=== PATIENT | female | born 1965 | race Caucasian/White ===

== ENCOUNTER 2021-01-23 18:10 | Observation (INO) | payer OTHER, SELFPAY ==
[2021-01-23] VITALS (19 sets, daily range): BP systolic 118–153; BP diastolic 82–103; PULSE 97; RESP 16; TEMP 36.2; O2SAT 95–99
--- NOTE | ~2021-01-23 | CT_ITS ---
EXAMINATION: CT abdomen pelvis wo con DATE: 01/23/2021 21:55 INDICATION: Generalized abdominal pain. TECHNIQUE: Computed tomography (CT) of the abdomen and pelvis was performed without intravenous contr ast. Automated exposure control and iterative reconstruction technique were employed. The dose-length product was 864.24 mGy-cm. COMPARISON: CT abdomen and pelvis 06/20/16 FINDINGS: The visualized portions of the lung bases demonstrate mild atelectasis. No pleural effusion . The heart size is normal. No pericardial effusion. The liver, gallbladder, spleen, pancreas, and ri ght adrenal gland are normal. There is a 1.4 cm mass in left adrenal gland measuring low-attenuation, consistent with an adenoma. There is moderate atrophy of right kidney. Left kidney is normal. There is diverticulosis of the colon without evidence of diverticulitis. The appendix is normal. There are no dilated loops of bowel. There are fibroids in the uterus. There are no pathologically enlarged lym ph nodes. There is no free intraperitoneal fluid. There is mild lumbar spondylosis. IMPRESSION: 1. Uterine fibroids. Reviewed, dictated and finalized at location A. IMPRESSION: 1. Uterine fibroids.
--- NOTE | ~2021-01-23 | XR_ITS ---
EXAMINATION: [id number] DATE: 01/23/2021 19:54 INDICATION: Right rib pain. TECHNIQUE: A frontal view of the chest and 2 views on 3 radiographs of the right ribs were obtained. COMPARISON: Chest 2 views 10/23/2013 FINDINGS: The chest demonstrates clear lungs without pneumonia, pleural effusion, or pneumothorax. Th e heart size is normal. IMPRESSION: 1. No rib fracture. Reviewed, dictated and finalized at location A. IMPRESSION: 1. No rib fracture.
--- NOTE | ~2021-01-23 | XR_ITS ---
EXAMINATION: XR shoulder RT min 2V DATE: 01/23/2021 19:54 INDICATION: Right shoulder pain. TECHNIQUE: 4 views of right shoulder were obtained. COMPARISON: None. FINDINGS: Bone alignment is normal. No fracture. Joint spaces are well maintained. IMPRESSION: 1. Normal right shoulder. Reviewed, dictated and finalized at location A. IMPRESSION: 1. Normal right shoulder.
--- NOTE | 2021-01-23 19:14 | ECG_ITS ---
Measurements Intervals [place] Rate: 74 P: 42 TN: 162 QRS: -35 QRSD: 104 T: 44 QT: 370 QTc: 411 Interpretive Statements SINUS RHYTHM LEFT AXIS DEVIATION LOW QRS VOLTAGE IN PRECORDIAL LEADS BORDERLINE R WAVE PROGRESSION, ANTERIOR LEADS BASELINE ARTIFACT- I, III, AVR, AVL BORDERLINE ECG Electronically Signed On 01-24-2021 5:21:39 CDT by Alan Bautista D.O.
--- NOTE | 2021-01-23 19:34 | ED.GENADULT ---
HPI - General Adult General Chief complaint: Unspecified Stated complaint: R AXILLA PAIN Time Seen by Provider: 01/23/21 19:11 Source: RN notes reviewed History of Present Illness HPI narrative: Patient presents emergency department from home for right axilla pain. Patient states symptoms been ongoing for the past 1-1/2 months the pain is located in the right anterior chest and radiates around to the right upper back at the exact same height level with pain going into the axilla she denies any swelling or erythema of the axilla she states pain is worse with movement of the right arm she denies any direct trauma or injury states pain is worse with deep inspiration and movement of the right arm patient states that she does take a muscle relaxer as well as gabapentin at home and tramadol for chronic pain issues she denies having any shortness of breath abdominal pain nausea vomiting Related Data Home Medications Medication Instructions Recorded Confirmed calcium carbonate-vitamin D3 1 tablet PO BID 01/24/21 01/24/21 cyclobenzaprine 10 mg PO TID PRN 01/24/21 01/24/21 estradiol 0.5 mg PO DAILY 01/24/21 01/24/21 gabapentin 100 mg PO TID 01/24/21 01/24/21 indomethacin 25 mg PO TID PRN 01/24/21 01/24/21 multivitamin with folic acid 1 tablet PO DAILY 01/24/21 01/24/21 [Daily-Cricket (with folic acid)] tramadol 50 mg PO Q8-10H PRN 01/24/21 01/24/21 Allergies Allergy/AdvReac Type Severity Reaction Status Date / Time bee venom protein (honey bee) Allergy Hives Verified 01/24/21 02:42 [bees] Review of Systems Review of Systems: Gen.: Denies fevers or chills ENT: Denies congestion Respiratory: Denies shortness of breath or cough CV: Reports anterior chest GI: Denies abdominal pain nausea, emesis or diarrhea Musculoskeletal: See HPI Neuro: Denies numbness, tingling, weakness or focal weakness Skin: Denies rash Except as documented, all other systems reviewed and negative PMF Past Medical History Medical History (Updated 01/24/21 @ 05:50 by Filippo Gallagher DO) Chronic pain Family History Family History (Updated 01/24/21 @ 02:58 by Jaziel Joseph RN) Father Spinal cord cancer Other No problems noted. Mother Coronary heart disease Sibling Kidney cancer, primary, with metastasis from kidney to other site Bone cancer Social History Social History (Updated 01/23/21 @ 19:36 by Filippo Gallagher DO) Smoking status: Never smoker Alcohol intake: never Substance use: never Spiritual care concerns: No Exam Narrative: APPEARANCE: No acute distress, nontoxic, resting in bed EYES: EOMI HEENT: Normocephalic, atraumatic, OMM RESPIRATORY: No respiratory distress Clear to auscultation bilaterally with no rhonchi wheezing or rales. CARDIOVASCULAR: Regular rate and rhythm without murmurs rubs or gallops. Bilateral radial pulse 2+ Chest: Tender palpation over the right anterior superior chest wall and regions of ribs 4 and 5 no overlying erythema or swelling tenderness extends around into the right axilla and into the right upper back in the exact same region pain increased with flexion abduction of the right shoulder greater than 45 degrees and deep inspiration ABDOMINAL: Soft, nondistended tender palpation right upper quadrant no tenderness left lower quadrant, right lower quadrant left lower quadrant no rebound or guarding MUSCULOSKELETAl: Moves all extremities. No clubbing, cyanosis or edema. No tenderness of the right shoulder elbow or wrist Back: No midline thoracic or lumbar tenderness palpation NEURO: Awake and alert. Following commands, speech normal, no focal deficits SKIN:: Warm, dry. No rashes lesions or abrasions PSYCHIATRIC: Normal affect/mood, Course Course Emergency Course: With elevated liver enzymes mild tenderness right upper quadrant CT abdomen pelvis Patient went for CT scan and had contrast extravasation from IV and left wrist up in the left forearm evaluate the patient left forearm
[2021-01-23] MEDS: KETOROLAC 30 MG/ML VIAL (*BKC) IV PUSH (19:36)
[2021-01-23 20:22] LABS: Basophils Percent Auto 0.5 % (0.2-1.2); Eosinophils Absolute Auto 0.2 K/mm3 (0-0.3); Eosinophils Percent Auto 3.3 % (0-4.4); Hematocrit 37.9 % (37.0-47.0); Hemoglobin 12.7 g/dL (12.0-15.0); Immature Granulocyte Absolute 0.01 K/mm3 (0.00-0.031); Immature Granulocyte Percent A 0.2 % (0-0.5); Lymphocytes Absolute Auto 2.07 K/mm3 (0.9-3.2); Lymphocytes Percent Auto 34.6 % (18.3-44.2); Mean Corpuscular HGB Conc 33.5 g/dl (32-36); Mean Corpuscular Hemoglobin 30.6 pg (26-34); Mean Corpuscular Volume 91.3 fl (80-100); Mean Platelet Volume 8.9 fl (7.4-10.4); Monocytes Absolute Auto 0.6 K/mm3 (0.1-0.6); Monocytes Percent Auto 9.8 % (2.6-8.5); Neutrophils Absolute Auto 3.1 K/mm3 (1.3-6.7); Neutrophils Percent Auto 51.6 % (45.5-73.1); Platelet Count Result 233 k/mm3 (150-375); Red Blood Count 4.15 M/mm3 (4.2-5.4); Red Cell Distribution Width 13.1 % (11.5-14.5)
[2021-01-23 20:26] LABS: Alanine Aminotransferase 103 U/L (4-35); Albumin Level 4.1 g/dL (3.5-5.1); Alkaline Phosphatase 100 U/L (38-126); Anion Gap 7 mmol/L (8-16); Aspartate Amino Transferase 90 U/L (14-36); Bilirubin,Total 0.3 mg/dL (0.2-1.3); Blood Urea Nitrogen 20 mg/dL (7-17); Calcium 9.4 mg/dL (8.4-10.2); Carbon Dioxide 23 mmol/L (22-30); Chloride 107 mmol/L (98-107); Estimated CRCL calculation 78 ml/min; Estimated Glomerular Filt Rate > 60; Glucose 104 mg/dL (65-110); Potassium 3.8 mmol/L (3.4-5.0); Sodium 137 mmol/L (137-145)
--- NOTE | 2021-01-23 20:40 | PC.NURSE ---
Called lab and spoke to Gladys to add on Lip
[2021-01-23 20:54] LABS: Lipase 39 U/L (23-300)
[2021-01-24] MEDS: methylPREDNISolone SOD SUCC 125 MG VIAL IV PUSH (01:55)
[2021-01-24 02:50] VITALS: BP 158/100; PULSE 68; RESP 18; TEMP 36.7; O2SAT 98; BMI 33.1
--- NOTE | 2021-01-24 03:26 | PM.IMHP ---
H&P: HPI History of Present Illness Date/Time: 01/24/21 03:26 Chief Complaint: Contrast extravasation Narrative: This is a 55-year-old female with known significant past medical his she is on gabapentin at home indomethacin, tramadol and Tums. She presents to the emergency room due to chest pain along the rib cage with radiation around to the arm. In an effort to work the patient of a contrast CT of the chest to rule out pulmonary embolism was obtained which was negative for pulmonary embolism however patient had extravasation of contrast into the day left forearm which is causing pain and distal discoloration decision has been made to place the patient in observation for further management assessment and treatment as needed. Review of Systems Review of Systems: Patient presented to emergency room due to pain along the rib cage with radiation around to the arm P CT contrast for PE was negative however patient had extravasation of contrast into the left forearm and is been placed in observation Constitutional: Constitutional: Denies chills, Denies fatigue, Denies fever(s), Denies lethargy, Denies malaise and Denies weakness Eyes: Eyes: Denies change in vision ENT: Denies nasal congestion, Denies nasal discharge and Denies nasal obstruction Cardiovascular: Cardiovascular: Denies chest pain, Denies edema, Denies irregular heart rhythm, Denies lightheadedness, Denies radiating jaw, neck or arm pain, Denies palpitations and Denies orthopnea Respiratory: Respiratory: Denies cough Gastrointestinal: Gastrointestinal: Denies abdominal pain, Denies diarrhea, Denies nausea and Denies vomiting Genitourinary: Genitourinary: Reports no additional female genitourinary complaints Musculoskeletal: Musculoskeletal: Reports other (Contrast extravasation into left forearm with swelling and discoloration) Integumentary/Breasts: Skin/Breast: Reports swelling and Reports change in pigmentation (Distal forearm left) Neurologic: Reports system reviewed and no additional complaints, except as documented Psychiatric: Psychiatric: Reports no additional psychiatric complaints Endocrine: Endocrine: Reports no additional endocrine complaints Hematologic/Lymphatic: Hematologic/Lymphatic: Reports no additional hematologic/lymphatic complaints Allergic/Immunologic: Allergic/Immunologic: Reports no additional allergic/immunologic complaints [facility] Past Medical History Medical History (Updated 01/24/21 @ 03:36 by Ness Tom MD) Chronic pain Family History Family History (Updated 01/24/21 @ 02:58 by Jaziel Joseph RN) Father Spinal cord cancer Other No problems noted. Mother Coronary heart disease Sibling Kidney cancer, primary, with metastasis from kidney to other site Bone cancer Social History Social History (Updated 01/23/21 @ 19:36 by Filippo Gallagher DO) Smoking status: Never smoker Alcohol intake: never Substance use: never Spiritual care concerns: No Meds Home Medications and Allergies Home Medications Medication Instructions Recorded Confirmed Type calcium carbonate-vitamin D3 1 tablet PO BID 01/24/21 01/24/21 History cyclobenzaprine 10 mg PO TID PRN 01/24/21 01/24/21 History estradiol 0.5 mg PO DAILY 01/24/21 01/24/21 History gabapentin 100 mg PO TID 01/24/21 01/24/21 History indomethacin 25 mg PO TID PRN 01/24/21 01/24/21 History multivitamin with folic acid 1 tablet PO DAILY 01/24/21 01/24/21 History [Daily-Cricket (with folic acid)] tramadol 50 mg PO Q8-10H PRN 01/24/21 01/24/21 History Allergies Allergy/AdvReac Type Severity Reaction Status Date / Time bee venom protein (honey bee) Allergy Hives Verified 01/24/21 02:42 [bees] Vital Signs Vital Signs - 24 hr 01/23/21 18:15 01/23/21 18:23 01/23/21 18:24 Temperature 97.1 F L Pulse Rate 97 Respiratory Rate 16 Blood Pressure 153/103 H 144/82 H Pulse Oximetry 99 99 97 01/23/21 18:32 01/23/21 18:45 01/23/21
[2021-01-24 05:20] VITALS: BP 148/91; PULSE 88; RESP 16; TEMP 36.1; O2SAT 98
[2021-01-24 15:04] VITALS: BP 138/88; PULSE 79; RESP 16; TEMP 36.9; O2SAT 96
--- NOTE | 2021-01-24 15:11 | PM.CNOR ---
Assessment and Plan Assessment and plan (1) Extravasation of intravenous contrast medium: Code(s): T80.818A - Extravasation of other vesicant agent, initial encounter <PRINCESS Lizama - Last Filed: 01/24/21 16:00> Status: Acute <PRINCESS Lizama - Last Filed: 01/24/21 16:00> Assessment and Plan: Patient was admitted to the hospital after extravasation of contrast into the day left forearm during a CT scan to rule out PE. She had increased pain and distal discoloration in the left forearm. She states she was having trouble moving her elbow and wrist at the time. This has gotten better throughout the night. She is now able to move all joints. No numbness or tingling. No intense pain. History of previous surgery in the left hand. She has chronic swelling in her left had and is unable to completely close her fist. No concern for compartment syndrome at this time. Discussed the signs of compartment syndrome with the patient including increased pain, swelling, numbness and tingling, pallor, decreased pulse. She will let her nurse know if she has any of these symptoms. Her symptoms of pain and swelling have improved over the night. Continue ice and elevation. Will continue to follow. Thank you for the consult. <PRINCESS Lizama - Last Filed: 01/24/21 16:00> Additional Plan Patient seen and examined. Agree with the above documentation. Extensive soft tissue swelling in the left upper extremity secondary to fluid extravasation from an intravenous line. Compartments currently quite soft, and by report improving. No pain with passive stretch. Neurovascular status otherwise intact. No evidence of impending compartment syndrome. Ok to discharge from ortho standpoint. <Eris Schreiber MD - Last Filed: 01/24/21 15:49> History of Present Illness HPI Consult date: 01/24/21 <PRINCESS Lizama - Last Filed: 01/24/21 16:00> 01/24/21 <Eris Schreiber MD - Last Filed: 01/24/21 15:49> Consult reason: other <PRINCESS Lizama - Last Filed: 01/24/21 16:00> Chief complaint: Contrast Extravasation Lt Forearm,Chest wall pain <PRINCESS Lizama - Last Filed: 01/24/21 16:00> Narrative: Patient was admitted to the hospital after extravasation of contrast into the day left forearm during a CT scan to rule out PE. She had increased pain and distal discoloration. She states she was having trouble moving her elbow and wrist at the time. This has gotten better throughout the night. She is now able to move all joints. No numbness or tingling. No intense pain. History of previous surgery in the left hand. She has chronic swelling in her had and is unable to completely close her fist. \ Patient states she does still have some pain in her chest between her breasts. <PRINCESS Lizama - Last Filed: 01/24/21 16:00> Review of Systems Review of Systems: All systems reviewed & are unremarkable except as noted in HPI and below <PRINCESS Lizama - Last Filed: 01/24/21 16:00> [facility] Past Medical History Medical History: Medical History Chronic pain <PRINCESS Lizama - Last Filed: 01/24/21 16:00> Family History Family History: Family History Father Spinal cord cancer Other No problems noted. Mother Coronary heart disease Sibling Kidney cancer, primary, with metastasis from kidney to other site Bone cancer <PRINCESS Lizama - Last Filed: 01/24/21 16:00> Social History Social History: Social History Smoking status: Never smoker Alcohol intake: never Substance use: never Spiritual care concerns: No <PRINCESS Lizama - Last Filed: 01/24/21 16:00> Meds Home Medications and Allergies Home medicati
[2021-01-24] MEDS: ENOXAPARIN 40 MG/0.4 ML SYRINGE SUB-Q (16:34)
--- NOTE | 2021-01-24 16:42 | PM.IMPN ---
Progress Note: A&P Assessment and Plan (1) Costochondritis: Code(s): M94.0 - Chondrocostal junction syndrome [Tietze] Status: Acute Assessment and Plan: Most likely explanation of chest pain, has on the right-hand side, nonexertional, sharp, easily reproducible on physical exam Will schedule high dose Tylenol, 650 q.6, and track pain. If not improving, can escalate to NSAID as needed. Wells score is 0, EKG and history not supportive of cardiac chest pain (2) Extravasation of intravenous contrast medium: Code(s): T80.818A - Extravasation of other vesicant agent, initial encounter Status: Acute Assessment and Plan: Placed in observation Elevate limb Ice packs to affected area Solu-Medrol 125 mg IV once Pain is improving. Ortho on consult to evaluate for compartment syndrome-they are not concerned for the time being, recommend to continue icing evaluation and will continue to follow. Appreciate recommendations. Time Spent With Patient Time: Patient will be on Lovenox for anticoagulation monitor how she does on costochondritis treatment add Eucerin cream for back Possible discharge tomorrow if symptoms improved. Ortho on board for evaluation of compartment syndrome, less likely right now, continue to monitor left arm. Time with patient: less than 15 minutes Subjective Date/time seen: 01/24/21 16:42 Intermittent chest pain, however symptoms improved. Increasing slowly functionality of left arm. Review of Systems Review of Systems: All systems reviewed & are unremarkable except as noted in HPI and below Exam Const: General: no acute distress Neck: Neck: no JVD Resp: Effort & Inspection: normal respiratory effort Auscultation: clear to auscultation bilaterally Cardio: Rate: regular rate Rhythm: regular rhythm Other: Pain to palpation over right chest and up to shoulder, tracking rib GI: GI Palp: Yes Soft to palpation and No Tenderness to palpation present (GI) Extrem: Shoulder/upper arm images: 1. Other: Left upper extremity, discolored and swollen, however improving compared to yesterday per patient Objective Data Vital Signs Vital Signs: Vital Signs - 24 hr 01/23/21 18:15 01/23/21 18:23 01/23/21 18:24 Temperature 97.1 F L Pulse Rate 97 Respiratory Rate 16 Blood Pressure 153/103 H 144/82 H Pulse Oximetry 99 99 97 01/23/21 18:32 01/23/21 18:45 01/23/21 18:46 Temperature Pulse Rate Respiratory Rate Blood Pressure 132/88 Pulse Oximetry 95 95 95 01/23/21 19:00 01/23/21 19:01 01/23/21 19:15 Temperature Pulse Rate Respiratory Rate Blood Pressure 121/94 H Pulse Oximetry 95 95 98 01/23/21 19:16 01/23/21 20:15 01/23/21 20:16 Temperature Pulse Rate Respiratory Rate Blood Pressure 118/89 138/94 H Pulse Oximetry 95 96 97 01/23/21 20:30 01/23/21 20:31 01/23/21 20:45 Temperature Pulse Rate Respiratory Rate Blood Pressure 145/94 H Pulse Oximetry 98 98 95 01/23/21 20:46 01/23/21 21:08 01/23/21 21:15 Temperature Pulse Rate Respiratory Rate Blood Pressure 126/90 Pulse Oximetry 96 96 96 01/23/21 21:16 01/24/21 02:50 01/24/21 05:20 Temperature 98.1 F 97.0 F L Pulse Rate 68 88 Respiratory Rate 18 16 Blood Pressure 128/89 158/100 H 148/91 H Pulse Oximetry 98 98 98 01/24/21 15:04 Temperature 98.4 F Pulse Rate 79 Respiratory Rate 16 Blood Pressure 138/88 Pulse Oximetry 96 Intake/Output Intake/Output: Intake & Output 01/21/21 01/22/21 01/23/21 01/24/21 23:59 23:59 23:59 23:59 Intake Total 580 Output Total 700 Balance -120 Meds/Results Medications: Active Medications Generic Name Dose Route Start Last Admin Trade Name Usamaq PRN Reason Stop Dose Admin Enoxaparin Sodium 40 mg 01/24/21 15:47 01/24/21 16:34 Enoxaparin 40 Mg/0.4 Ml Syringe SUB-Q 40 mg DAILY TANIKA Administration Radiology Results: ITS Impressions Ribs w/Chest X-Ray
[2021-01-24 20:00] VITALS: PULSE 79; RESP 16; O2SAT 96
[2021-01-24 21:34] VITALS: BP 133/90; PULSE 80; RESP 18; TEMP 36.3; O2SAT 97
[2021-01-25 05:07] VITALS: BP 157/86; PULSE 89; RESP 18; TEMP 36.1; O2SAT 97
[2021-01-25 06:16] LABS: Basophils Percent Auto 0.1 % (0.2-1.2); Eosinophils Percent Auto 0.1 % (0-4.4); Hematocrit 41.1 % (37.0-47.0); Hemoglobin 13.6 g/dL (12.0-15.0); Immature Granulocyte Absolute 0.05 K/mm3 (0.00-0.031); Immature Granulocyte Percent A 0.4 % (0-0.5); Lymphocytes Absolute Auto 1.35 K/mm3 (0.9-3.2); Lymphocytes Percent Auto 9.5 % (18.3-44.2); Mean Corpuscular HGB Conc 33.1 g/dl (32-36); Mean Corpuscular Volume 90.7 fl (80-100); Monocytes Absolute Auto 1.1 K/mm3 (0.1-0.6); Monocytes Percent Auto 7.6 % (2.6-8.5); Neutrophils Absolute Auto 11.8 K/mm3 (1.3-6.7); Neutrophils Percent Auto 82.3 % (45.5-73.1); Platelet Count Result 268 k/mm3 (150-375); Red Blood Count 4.53 M/mm3 (4.2-5.4); Red Cell Distribution Width 13.2 % (11.5-14.5); White Blood Count 14.3 K/mm3 (4.5-10.0)
[2021-01-25 06:45] LABS: Alanine Aminotransferase 95 U/L (4-35); Albumin Level 3.8 g/dL (3.5-5.1); Alkaline Phosphatase 83 U/L (38-126); Anion Gap 7 mmol/L (8-16); Aspartate Amino Transferase 77 U/L (14-36); Bilirubin,Total 0.4 mg/dL (0.2-1.3); Blood Urea Nitrogen 22 mg/dL (7-17); Calcium 8.9 mg/dL (8.4-10.2); Carbon Dioxide 23 mmol/L (22-30); Chloride 108 mmol/L (98-107); Estimated CRCL calculation 88 ml/min; Estimated Glomerular Filt Rate > 60; Glucose 116 mg/dL (65-110); Magnesium 2.2 mg/dL (1.6-2.3); Phosphorus 3.2 mg/dL (2.5-4.5); Sodium 138 mmol/L (137-145)
[2021-01-25] MEDS: EUCERIN CREAM 120 GM JAR 1 APPLIC TOPICAL (07:58)
[2021-01-25] MEDS: ENOXAPARIN 40 MG/0.4 ML SYRINGE SUB-Q (07:58)
--- NOTE | 2021-01-25 09:47 | PM.PNORT ---
Progress Note: A&P Assessment and Plan (1) Extravasation of intravenous contrast medium: Code(s): T80.818A - Extravasation of other vesicant agent, initial encounter Status: Acute Assessment and Plan: Patient continues to improve. Discussed the signs of compartment syndrome with the patient including increased pain, swelling, numbness and tingling, pallor, decreased pulse. Soft tissue swelling in the left upper extremity secondary to fluid extravasation from an intravenous line is improving. Compartments currently quite soft. No pain with passive stretch. Neurovascular status otherwise intact. No evidence of impending compartment syndrome. Ok to discharge from ortho standpoint. Ortho instructions: Continue ice and elevation. If increased pain, swelling, pallor, pulselessness, or numbness and tingling occur call the office and/or go to the emergency room. Follow up as needed. If you would like an appointment, call [facility] at Subjective Subjective Date/Time Seen: 01/25/21 09:47 Patient progressing well. She was up grooming herself at the time of my visit. No pain in her forearm at this time. Full range of motion. Swelling improving. No numbness or tingling. Review of Systems Review of Systems: All systems reviewed & are unremarkable except as noted in HPI and below Exam Narrative: Pleasant, overweight 55 y/o female. No acute distress. Alert and oriented. Moderate swelling of the left forearm. Some dark discoloration. No pallor. Good wrist and elbow range of motion. Light touch sensation intact. Normal capillary refill. Pulses palpable. Objective Data Vital Signs Vital Signs: Vital Signs - 24 hr 01/24/21 15:04 01/24/21 20:00 01/24/21 21:34 Temperature 98.4 F 97.3 F L Pulse Rate 79 79 80 Respiratory Rate 16 16 18 Blood Pressure 138/88 133/90 Pulse Oximetry 96 96 97 01/25/21 05:07 Temperature 97 F L Pulse Rate 89 Respiratory Rate 18 Blood Pressure 157/86 H Pulse Oximetry 97 Intake/Output Intake/Output: Intake & Output 01/22/21 01/23/21 01/24/21 01/25/21 23:59 23:59 23:59 23:59 Intake Total 1370 350 Output Total 1100 350 Balance 270 0 Meds/Results Medications: Active Medications Generic Name Dose Route Start Last Admin Trade Name Freq PRN Reason Stop Dose Admin Acetaminophen 650 mg 01/24/21 18:00 01/25/21 05:40 Acetaminophen 325 Mg Tablet PO Not Given Q6HR [facility] Enoxaparin Sodium 40 mg 01/24/21 15:47 01/25/21 07:58 Enoxaparin 40 Mg/0.4 Ml Syringe SUB-Q 40 mg DAILY TANIKA Administration Multi-Ingred Cream/Lotion/Oil/Oint 1 applic 01/25/21 09:00 01/25/21 07:58 Eucerin Cream 120 Gm Jar TOPICAL 1 applic DAILY TANIKA Administration Radiology Results: ITS Impressions Ribs w/Chest X-Ray 01/23/21 20:00 IMPRESSION: 1. No rib fracture. Shoulder X-Ray 01/23/21 20:01 IMPRESSION: 1. Normal right shoulder. Abdomen/Pelvis CT 01/24/21 07:48 IMPRESSION: 1. Uterine fibroids. Labs Labs: Laboratory Results - last 24 hr 01/25/21 01/25/21 06:07 06:07 WBC 14.3 H RBC 4.53 Hgb 13.6 Hct 41.1 MCV 90.7 MCH 30.0 MCHC 33.1 RDW 13.2 Plt Count 268 MPV 9.0 Immature Gran % (Auto) 0.4 Neut % (Auto) 82.3 H Lymph % (Auto) 9.5 L Tift % (Auto) 7.6 Eos % (Auto) 0.1 Baso % (Auto) 0.1 L Lymph # (Auto) 1.35 Tift # (Auto) 1.1 H Eos # (Auto) 0.0 Baso # (Auto) 0.0 Abs Immat Gran (auto) 0.05 H Absolute Neuts (auto) 11.8 H Absolute Nucleated RBC 0.0 Nucleated RBC % 0.0 Sodium 138 Potassium 4.0 Chloride 108 H Carbon Dioxide 23 Anion Gap 7 L BUN 22 H Creatinine 0.70 Estim Creat Clear Calc 88 Estimated GFR > 60 Glucose 116 H Calcium 8.9 Phosphorus 3.2 Magnesium 2.2 Total Bilirubin 0.4 AST 77 H ALT 95 H Alkaline Phosphatase 83 Total Protein 7.0 Albumin 3.8
--- NOTE | 2021-01-25 15:02 | PM.DS ---
DS: Admitting Diagnosis Discharge Date 01/25/21 Admitting Diagnosis Chest pain DS: Discharge Diagnosis Discharge Diagnosis (1) Costochondritis: Code(s): M94.0 - Chondrocostal junction syndrome [[place]ze] Status: Acute DS: Summary Hospital Course Reason for hospitalization: Costochondritis Hospital Course: 55-year-old lady presenting to the hospital with a few episodes spread out over a few weeks at home of sharp chest pain. Based on history less likely to be cardiac chest pain. Nonexertional, positional and reproducible with palpation. EKG nonischemic. On physical exam, palpation able to induce exactly the pain that she has been feeling. X-ray not showing fracture of rib or abnormality of right shoulder. Taken together these findings are highly suggestive of costochondritis. No other respiratory symptoms, or infectious symptoms. Started on trial of Tylenol, 650 Q 6, and this eliminated her pain altogether. We will discharge her on 3 weeks of this, and she is instructed to stop if pain resolves for a few days. Of note, while working up chest pain, admitting physician obtained CT angio. While performing this exam, patient experienced extravasation of IV contrast medium, which led to pain and swelling. Was given Solu-Medrol IV 125 once, and told to elevate limb and apply ice packs to the affected area. Orthopedic service consulted for compartment syndrome, were not concerned, and advised continue ice the arm. CT abdomen pelvis showing uterine fibroids only, discussed this with patient, she was aware. Discussed possible role of Daily estradiol, and patient will discuss this with primary care. We will discharge with Tylenol as above, and close follow-up with primary care. Time spent discussing smoking cessation with patient: 3 to 10 minutes Status at Discharge Functional status at discharge: independent ambulation Overall status at discharge: patient is progressing back to baseline Time Spent with Patient Time attestation: Total time spent providing and/or coordinating discharge services: Time spent: Less than 30 minutes Exam Const: General: no acute distress Neck: Neck: no JVD Resp: Effort & Inspection: normal respiratory effort Auscultation: clear to auscultation bilaterally Cardio: Rate: regular rate Rhythm: regular rhythm GI: GI Palp: Yes Soft to palpation and No Tenderness to palpation present (GI) DS: Data Data Completed and Pending Labs on day of discharge: Labs from last 24 hours 01/25/21 01/25/21 06:07 06:07 WBC 14.3 H RBC 4.53 Hgb 13.6 Hct 41.1 MCV 90.7 MCH 30.0 MCHC 33.1 RDW 13.2 Plt Count 268 MPV 9.0 Immature Gran % (Auto) 0.4 Neut % (Auto) 82.3 H Lymph % (Auto) 9.5 L [place] % (Auto) 7.6 Eos % (Auto) 0.1 Baso % (Auto) 0.1 L Lymph # (Auto) 1.35 [place] # (Auto) 1.1 H Eos # (Auto) 0.0 Baso # (Auto) 0.0 Abs Immat Gran (auto) 0.05 H Absolute Neuts (auto) 11.8 H Absolute Nucleated RBC 0.0 Nucleated RBC % 0.0 Sodium 138 Potassium 4.0 Chloride 108 H Carbon Dioxide 23 Anion Gap 7 L BUN 22 H Creatinine 0.70 Estim Creat Clear Calc 88 Estimated GFR > 60 Glucose 116 H Calcium 8.9 Phosphorus 3.2 Magnesium 2.2 Total Bilirubin 0.4 AST 77 H ALT 95 H Alkaline Phosphatase 83 Total Protein 7.0 Albumin 3.8 Discharge Plan Discharge Consulting providers: Eris Schreiber Discharging Clinician: Iam Nino Patient Disposition: Home, Self-Care Activity: no shower, no straining and no driving Diet: as tolerated and heart healthy Discharge Instructions: Ortho instructions: Continue ice and elevation. If increased pain, swelling, pallor, pulselessness, or numbness and tingling occur call the office and/or go to the emergency room. Follow up as needed. If you would like an appointment, call [facility] at . Patient Instructions: Antibiotic Form,
== END 2021-01-25 12:51 | disposition home or self-care (01) ==
LOC: ANHED 19:11 → ANH3MED 01-24 02:55
PROVIDERS: Admitting Provider Internal Medicine; Emergency Provider Emergency Medicine; PCP Internal Medicine Gastroenterology; Visit Provider Internal Medicine
DX: T80.818A Extravasation of other vesicant agent, initial encounter (principal); M94.0 Chondrocostal junction syndrome [Tietze]; G89.29 Other chronic pain; D25.9 Leiomyoma of uterus, unspecified
CPT/HCPCS: 36415; 71101; 73030; 74176; 80053; 83690; 83735; 84100; 85025; 93005; 96372; 96374; 99285; A9270; G0378; G0379; J1650; J1885; J2930